=== PATIENT | female | born 1970 | race Caucasian/White ===

== ENCOUNTER 2020-11-02 19:51 | Emergency (ER) | payer SELFPAY ==
[~2020-11-02] VITALS: Ht 172.7 cm; Wt 87.2 kg
[2020-11-03] MEDS ORDERED: ZOFRAN4 MG PO (00:54)
== END 2020-11-03 05:42 | disposition home or self-care (01) ==
LOC: ED 19:51
DX: K29.00 Acute gastritis without bleeding (principal); F17.200 Nicotine dependence, unspecified, uncomplicated; Z88.0 Allergy status to penicillin
CPT/HCPCS: 80053; 81001; 84703; 85025; 96374; 96375; 99284-25; J1790; J2405; J2550; J2765; J7030